=== PATIENT | female | born 1945 | race Caucasian/White ===

== ENCOUNTER → 2016-10-28 | Outpatient (CLI) | payer OTHER ==
--- NOTE | 2016-10-28 10:52 | DX ---
Chest, Two Views October 28, 2016 1025 hours History: Cough. Comparison: August 2013. Findings: Cardiac silhouette is within normal range. No pneumonia, congestive heart failure, pleura l effusion, or pneumothorax. Surgical clips in the right breast and right axillary region. Bilateral peribronchial thickening consistent with bronchitis. Linear density in the left lower lobe which may represent atelectasis or scarring similar to previous study. Atherosclerotic tortuous aorta. Impression: 1. Bronchitis. 2. No acute pneumonia. 3. Atherosclerotic tortuous aorta.
== END ==
LOC: GIMAGING 10:24
PROVIDERS: ATTEND Nurse Practitioner Family
DX: J40 Bronchitis, not specified as acute or chronic (principal); I70.0 Atherosclerosis of aorta
CPT/HCPCS: 71020-PO